=== PATIENT | male | born 1995 | race Hispanic/Latino ===

== ENCOUNTER 2024-09-04 14:17 | Outpatient (CLI) | payer OTHER, SELFPAY ==
--- OUTSIDE RECORDS SUMMARY | 2024-09-04 14:27 | XMS_ITS | Encounter Summary ---
Author Organization [facility] Address [address] [facility] [place] [address] Care Team Providers Care Commissioning Engineer Name Role Phone Unavailable Primary Care Provider Unavailabl e Encounter Details Date Type Department Care Team (Late st Contact Info) Description 10/29/2019 Lab Requisition [facility] DermPath Lab [address] [facility] [place] [id number] Rachelle Miles MD [address] [facility] [address] [place] [address] Social History Tobacco Use Types Packs/Day Years Used Date Smoking Tobacco: Never Assessed Sex and Gender Information Value Date Recorded Sex Assigned at Not on file Legal Sex Male 10:40 AM CDT Gender Identity Not on file Sexual Orientation Not on file documented as of this encounter Plan of Treatment Not on file documented as of this encounter Procedures Procedure Name Priority Date/Time Associated Diagnosis Comments DERMATOPATHOLOGY Routine 10/28/2019 12:0 0 AM CDT documented in this encounter Results * DERMATOPATHOLOGY (10/28/2019 12:00 AM CDT) Case Report Dermatopathology Report Case: [id number] Authorizing Provider: Rachelle Miles MD Collected: 10/28/2019 12:00 AM Ordering Location: [facility] DermPath Lab Received: 10/29/2019 06:41 AM Pathologist: Amanda Reyes MD Specimen: Skin, right neck 0 2:17 PM CDT DERMATOPATHOLOGY LABORATORY Final Diagnosis Specimen A. SKIN, right neck: COMPOUND MELANOCYTIC NEVUS (D22.4) 0 2:17 PM CDT DERMATOPATHOLOGY LABORATORY at 1417 CDT Clinical History R/O nevus, bleeding, pink papule. 0 2:17 PM CDT DERMATOPATHOLOGY LABORATORY Gross Description Specimen A: Received is one formalin filled container labeled with the patient's name and designated right neck. The specimen consists of a shave measuring [id number]. Jar 0. 0 2:17 PM CDT DERMATOPATHOLOGY LABORATORY Microscopic Description Specimen A. SKIN, right neck: There are nests of melanocytes at the dermal-epidermal junction and within the dermis. 0 2:17 PM CDT DERMATOPATHOLOGY LABORATORY Disclaimer An external and internal positive and negative controls are appropriate for the histochemical, immunohistochemical and immunofluorescence stain(s) in this case (if any), except where stated explicitly. The performance characteristics of the stain(s) cited in this report were developed and its performance characteristic determined by the Dermatopathology Laboratory at [facility], directed by Dr. Emma Hopkins. These tests need not be, and therefore are not, approved by the [place] Food and Drug Administration. The tests are used for clinical purposes. Billing Codes Specimen Charges Stain Charges 98018 1 0 2:17 PM CDT DERMATOPATHOLOGY LABORATORY Embedded Images 0 2:17 PM CDT DERMATOPATHOLOGY LABORATORY Pathology/Cytolog y TISSUE SPECIMEN FROM SKIN / Unknown 10/28/2019 10/29/2019 6:41 AM CDT Rachelle Miles MD LAB - PATHOLOGY/CYTOLOGY ORD ERABLES Final Result DERMATOPATHOLOGY LABORATORY [facility] - Department of Dermatology [address], [address] Floor [address] [phone] documented in this encounter Visit Diagnoses Not on filedocumented in this encounter
--- OUTSIDE RECORDS SUMMARY | 2024-09-04 14:27 | XMS_ITS | Referral Summary ---
Author Organization [address] Address [address] [place] [address] Care Team Providers Care Cloth Handler Name Role Phone Thu Moon NP Primary Care Provider [phone] Thu Moon NP Unavailable [phone] Encounters Date Type Department Care Team Description 06/13/2024 Results Follow-Up [facility] Convenient Care at [address] [phone] Beverly Riley NP Throat culture Throat 06/11/2024 11:36 PM CDT - 06/11/2024 11:59 PM CDT Hospital Encounter [address] [address] Pharyngitis, unspecified etiology Discharge Disposition: Discharge to home or self care 06/11/2024 6:30 PM CDT Office Visit [facility] Care at [address] [phone] Lizette Tsai NP Pharyngitis, unspecified etiology (Primary Dx); Exposure to strep throat from Last 3 Months Allergies No known active allergies Medications acetaminophen (TYLENOL) 500 mg tablet Take 1 tablet (500 mg total) by mouth every 6 (six) hours as needed for pain 30 tablet Active albuterol HFA (PROVENTIL HFA,VENTOLIN HFA,PROAIR HFA) 90 mcg/actuation inhaler Inhale 2 puffs every 4 (four) hours as needed for shortness of breath 6.7 g 4 Active buPROPion XL (WELLBUTRIN XL) 150 mg 24 hr tablet Take 1 tablet (150 mg total) by mouth daily Active escitalopram (LEXAPRO) 20 mg tablet Take 1 tablet (20 mg total) by mouth daily Active LORazepam (ATIVAN) 1 mg tablet 5 Active Adzenys XR-ODT 15.7 mg tablet,disintig ER biphase 24h 5 Active Active Problems No known active problems Social History Tobacco Use Types Packs/Day Years Used Date Smoking Tobacco: Never Tobacco Cessation:Counseling Given: Not Answered Alcohol Use Standard Drinks/Week Comments Never 0 (1 standard drink = 0.6 oz pur e alcohol) AUDIT-C Answer Date Recorded Q1: How often do you have a drink containing alc ohol? Never 03/13/2024 Average Number of Drinks Not on file 025 Frequency of Binge Drinking Not on file 02/14 Personal Safety Answer Date Recorded Have you ever been in or are you currently in a harmful physical or emotional relationship or is someone making you feel afraid or unsafe? 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 Sexual Orientation Straight 03/04/2024 7: 56 AM MANUFACTURING MACHINE OPERATOR Last Filed Vital Signs Vital Sign Reading Time Taken Comments Blood Pressure 128/68 06/11/2024 6:20 PM CDT Pulse 97 06/11/2024 6:20 PM CDT Temperature 36.9 C (98.4 F) 06/11/2024 6:20 PM CDT Respiratory Rate 20 06/11/2024 6:20 PM CDT Oxygen Saturation 97% 06/11/2024 6:20 PM CDT Inhaled Oxygen Concentration - - Weight 133.4 kg (294 lb) 06/11/2024 6:20 PM CDT Height 175.3 cm (5' 9) 03/13/2024 3:41 PM MANUFACTURING MACHINE OPERATOR Body Mass Index 43.42 03/13/2024 3:41 PM MANUFACTURING MACHINE OPERATOR Plan of Treatment Not on file Procedures Procedure Name Priority Date/Time Associated Diagnosis Comments THROAT CULTURE Routine 06/11/2024 6:52 PM CDT Pharyngitis, unspecified etiology POC INFLUENZA A/B, COVID-19 ANTIGEN Routine 06/11/2024 6:50 PM CDT Pharyngitis, unspecified etiology POCT RAPID STREP Routine 06/11/2024 6:42 PM CDT Pharyngitis, unspecified etiology from Last 3 Months Results * Throat culture Throat (06/11/2024 6:52 PM CDT) Report Final Report: No growth of pathogens. Comment:Testing performed by : [facility], [address] [place]., [address] Throat 06/11/2024 6:52 PM CDT 06/12/2024 5:53 AM CDT Narrative EVA - 06/13/2024 11:40 AM CDT Testing performed by [facility] Microbiology Laboratory ([phone]). us Lizette Tsai NP LAB MICROBIOLOGY - GENERAL ORD ERABLES Final Result [facility] [address] [facility] [place] [address] * POC Influenza A/B, COVID-19 antigen (06/11/2024 6:50 PM CDT) Influenza A Ag, POC Negative Negative [facility] Influenza B Ag, POC Negative Negative [facility] COVID-19 Ag POC Presumptive Negative Presumptive Negative, Invalid [facility] Swab 06/11/2024 6:50 PM CDT us Lizette Tsai NP POINT OF CARE TEST ORDERABLES Final Result [facility] [address] [place] [address] * POCT rapid strep A (06/11/2024 6:42 PM CDT) Rapid Strep A, POC Negative Negative Swab 06/11/2024 6:42 PM CDT Lizette Tsai NP POINT OF CARE TEST ORDERABLES Final Result from Last 3 Months Insurance [employer] Address: [facility] [id number] [place] [address] Care Teams Cloth Handler Relationship Specialty Start Date End Date Thu Moon NP [address] [place] [address] PCP - General Nurse Practitioner 03/13/24 Thu Moon NP [address] [place] [address] Nurse Practitioner 03/13/24
--- OUTSIDE RECORDS SUMMARY | 2024-09-04 14:27 | XMS_ITS | Clinical Summary ---
Author Organization [place] [id number] [facility] Address [address] [place] [address] Care Team Providers Care Nurse Aide Name Role Phone Thu Moon NP Primary Care Provider [phone] Thu Moon NP Unavailable [phone] Allergies No known active allergies Medications acetaminophen (TYLENOL) 500 mg tablet Take 1 tablet (500 mg total) by mouth every 6 (six) hours as needed for pain 30 tablet 4 Active albuterol HFA (PROVENTIL HFA,VENTOLIN HFA,PROAIR HFA) [...] Active Active Problems No known active problems Encounters Date Type Department Care Team Description 06/13/2024 Results Follow-Up [facility] Care at [address] [address] Beverly Riley NP Throat culture Throat 06/11/2024 11:36 PM CDT - 06/11/2024 11:59 PM CDT Hospital Encounter [facility] [address] [place] [address] Pharyngitis, unspecified etiology Discharge Disposition: Discharge to home or self care 06/11/2024 6:30 PM CDT Office Visit [facility] Convenient Care at [address] [address] Lizette Tsai, KUMAR Pharyngitis, unspecified etiology (Primary Dx); Exposure to strep throat from Last 3 Months Surgical History Surgery Date Site/Laterality Comments NEPHRECTOMY 02/13/2017 - 02/12/2018 Left Medical History Medical History Date Comments Anxiety Social History Tobacco Use Types Packs/Day Years [...] CDT Gender Identity Male 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 Sexual Orientation Straight 03/04/2024 7: 56 AM HAND COPER Obstetrics History Last Filed Vital Signs Vital Sign Reading [...] 175.3 cm (5' 9) 03/13/2024 3:41 PM HAND COPER Body Mass Index 43.42 03/13/2024 3:41 PM HAND COPER Plan of Treatment Health Maintenance Due Date Last Done Comments Depression Screening 1996 Hepatitis C Screening 1996 DTaP/Tdap/Td Vaccine (1 - Tdap) 09/18/2007 Varicella Vaccines (1 of 2 - 13+ 2-dose series) 2009 Hepatitis B Screening 2014 Regular Well Visit/Exam 18-64 2014 Covid-19 Vaccine ( season) 2023 06/05/2020, 05/14/2020 Influenza Vaccine (#1) 2024 , 11/26/2022, 01/12/2022, Additional history exists HPV Vaccines Aged Out No longer eligi ble based on patient's age to complete this topic Pneumococcal vaccine <65 Aged Out No longer eligible based on patient's age to complete this topic Procedures Procedure Name Priority Date/Time Associated Diagnosis [...] growth of pathogens. Comment:Testing performed by : [facility], [address] [facility], [place]., [address] Throat 06/11/2024 6:52 PM CDT 06/12/2024 5:53 AM CDT Ana Luisa DICKINSONNER - 06/13/2024 11:40 AM CDT Testing performed by [facility] Microbiology Laboratory ([phone]). Lizette Tsai NP LAB MICROBIOLOGY - GENERAL ORD ERABLES Final Result [facility] [address] [place] [address] * POC Influenza A/B, COVID-19 antigen (06/11/2024 6:50 PM CDT) Influenza A Ag, POC Negative Negative [facility] Influenza B Ag, POC Negative Negative [facility] COVID-19 Ag POC Presumptive Negative Presumptive Negative, Invalid [facility] Swab 06/11/2024 6:50 PM CDT us Lizette Tsai NP POINT OF CARE TEST ORDERABLES Final Result Performing Organization Address City/[facility] Co de Phone Number [facility] [address] [place] [address] * POCT rapid strep A (06/11/2024 6:42 PM CDT) Rapid Strep A, POC Negative Negative Swab 06/11/2024 6:42 PM CDT us Lizette Tsai NP POINT OF CARE TEST ORDERABLES Final Result from Last 3 Months Insurance [facility] [employer] Address: [facility] [id number] [place] [phone] Care Teams Nurse Aide Relationship Specialty Start Date End Date Thu Moon NP [address] [place] [address] PCP - General Nurse Practitioner 03/13/24 Thu Moon NP [address] [place] [address] Nurse Practitioner 03/13/24
--- OUTSIDE RECORDS SUMMARY | 2024-09-04 14:28 | XMS_ITS | Clinical Summary ---
Author Organization [facility] Address [address] [place] [address] Care Team Providers Care Audit Senior Associate Name Role Phone Unavailable Primary Care Provider Unavailabl e Source Comments [facility],non-owned Affiliates and Associated Physician Practices is amultiple site organization consisting of ambulatory clinics and hospital sitesin [place], [place], [place] and [place]. This disclosure is being madepursuant to the Care Everywhere program and may not contain all information available regarding this patient. Last updated 17.[facility] [employer] Social History Tobacco Use Types Packs/Day Years Used Date Smoking Tobacco: Never Assessed Sex and Gender Information Value Date Recorded Sex Assigned at Not on file Legal Sex Male 10:40 AM CDT Gender Identity Not on file Sexual Orientation Not on file Plan of Treatment Health Maintenance Due Date Last Done Comments HIV SCREENING 09/18/2011 HEPATITIS C SCREENING 09/13/2014 DTAP/TDAP/TD VACCINES (1 - Tdap) 09/18/2015 HEPATITIS B VACCINE (1 of 3 - 19+ 3-dose series) 09/18/2015 HPV VACCINE (1 - 3-dose SCDM series) 09/18/2023 COVID-19 VACCINE (1 - 2023-2 5 season) 2023 DEPRESSION SCREENING 02/14/2024 INFLUENZA VACCINE (#1) 2024 ZOSTER VACCINE (1 of 2) 2046 HIB VACCINE Aged Out No longer eligi ble based on patient's age to complete this topic MENINGOCOCCAL (Group B) VACC INE SHARED DECISION-MAKING Aged Out No longer eligibl e based on patient's age to complete this topic MENINGOCOCCAL GROUPS A/C/Y/W VACCINE Aged Out No longer eligible b ased on patient's age to complete this topic PNEUMOCOCCAL VACCINE Aged Out No long er eligible based on patient's age to complete this topic Insurance [employer]
== END 2024-09-04 14:18 | disposition home or self-care (01) ==
LOC: ANHAUDIO 14:18
PROVIDERS: PCP Nurse Practitioner; Visit Provider Otolaryngology Otolaryngology/Facial Plastic Surgery
DX: H91.93 Unspecified hearing loss, bilateral (principal)
CPT/HCPCS: 92557; 92567